=== PATIENT | female | born 1960 | race Caucasian/White ===

== ENCOUNTER 2019-04-22 14:12 | Emergency (ER) | payer SELFPAY ==
[2019-04-22 14:22] VITALS: BP 103/56; PULSE 58; O2SAT 98
[2019-04-22] MEDS ORDERED: Adacel Vial IM ONE (14:30)
--- NOTE | 2019-04-22 14:35 | ERPHSYRPT ---
- History of Present Illness Time Seen by Provider: 04/22/19 14:21 Source: patient Exam Limitations: no limitations Patient Subjective Stated Complaint: pt to ER with dizziness since this morning around 0900. pt states nausea with vomiting. pt states she feels like the room is spinning. Triage Nursing Assessment: pt to ER with complaints of dizziness since 0900. pt with + nausea and vomiting. Physician History: 58 years old right-handed dominant female presented to the ER with chief complaint of right thumb laceration while doing dishes but there was a broken piece of glass. There is bleeding but it stopped with applying pressure. She is able to move her thumb in all directions. She is complaining of dull aching or sharp pain with movements. unsure about tetanus status. Occurred: just prior to arrival Method of Injury: incised Quality: burning, sharpness Severity of Pain-Max: moderate Severity of Pain-Current: mild Extremities Pain Location: thumb: right Modifying Factors: Improves With: immobilization, movement Associated Symptoms: other Allergies/Adverse Reactions: No Known Drug Allergies Allergy (Unverified 04/22/19 14:13) Hx Tetanus, Diphtheria Vaccination/Date Given: Yes Hx Influenza Vaccination/Date Given: No Hx Pneumococcal Vaccination/Date Given: No Immunizations Up to Date: Yes - Past Medical History Pertinent Past Medical History: Yes Neurological History: No Pertinent History ENT History: No Pertinent History Cardiac History: Hypertension Respiratory History: No Pertinent History Endocrine Medical History: No Pertinent History Musculoskeletal History: No Pertinent History GI Medical History: GERD History: No Pertinent History Psycho-Social History: Depression Female Reproductive Disorders: No Pertinent History Other Medical History: HSV type 2 - Past Surgical History Past Surgical History: Yes Neuro Surgical History: No Pertinent History Cardiac: No Pertinent History Respiratory: No Pertinent History Gastrointestinal: Appendectomy Genitourinary: No Pertinent History Musculoskeletal: Orthopedic Surgery Female Surgical History: Tubal Ligation - Social History Smoking Status: Never smoker How long have you smoked: years Exposure to second hand smoke: Yes Drug Use: none Patient Lives Alone: No - Female History Hx Now: No - Nursing Vital Signs Nursing Vital Signs: Initial Vital Signs Pulse Rate 108 H 04/22/19 14:14 Blood Pressure 167/92 04/22/19 14:14 O2 Sat by Pulse Oximetry 98 04/22/19 14:14 Pain Scale Pain Intensity 0 - Physical Exam General Appearance: no apparent distress Eyes, Ears, Nose, Throat Exam: normal ENT inspection Neck Exam: normal inspection, non-tender, supple Cardiovascular/Respiratory Exam: chest non-tender, normal breath sounds, regular rate/rhythm, heart sounds normal Shoulder Exam: normal inspection Elbow/Forearm Exam: normal inspection Wrist Exam: normal inspection Hand Exam: normal ROM, laceration (2.5cm L shaped laceration at dorsal aspect of the MPJ, NO ACTIVE SPURTING BUT OOZING.), No non-tender, No bone tenderness, No nail injury Neuro/Tendon Exam: normal sensation, normal motor functions, normal tendon functions Mental Status Exam: alert, oriented x 3, cooperative Skin Exam: normal color SpO2 Interpretation: normal SpO2: 98 O2 Delivery: Room Air Procedures - Laceration/Wound Repair Right Upper Anterior/Posterior Lateral Proximal Dorsal Finger Wound Location: Right, hand Wound Length (cm): 2.5 Wound's Depth, Shape: superficial Wound Explored: clean Irrigated: Yes Hibiclens Prep: Yes Anesthesia: local, 2% Lidocaine Volume Anesthetic (ccs): 2 Wound Repaired With: sutures Suture Size/Type: 4-0, ethilon Number of Sutures: 5 Layer Closure?: No Sterile Dressing Applied?: Yes Splint Applied?: Yes Type of Splint Applied: aluminum premade Sling Applied?: No - Course Nursing assessment & vital signs reviewed: Yes Ordered Tests: Medication Summary Discontinued Medications Generic Name Dose Route Start Last Admin Trade Name Freq PRN Reason Stop Dose Admin Diphtheria/Tetanus/Acell Pertussis Confirm 04/22/19 14:30 Adacel Vial Administered 04/22/19 14:31 Dose 0.5 ml IM [email or web address] - Progress Progress: improved, re-examined Progress Note: laceration is repaired. pre made aluminum Splint is applied. distal neurovascular intact. 04/22/19 14:39 Counseled pt/family regarding: diagnosis, need for follow-up - Departure Departure Disposition: Home Clinical Impression: Laceration of thumb Qualifiers: Encounter type: initial encounter Damage to nail status: without damage Foreign body presence: without foreign body Laterality: right Qualified Code(s) : S61.011A - Laceration without foreign body of right thumb without damage to nail, initial encounter Condition: Stable Critical Care Time: No Instructions: Wound Care (DC), Laceration Repair With Stitches (DC) Additional Instructions: take Tylenol/ibuprofen as needed. Keep it clean. Avoid exertional activities with the right hand. Followup with primary care for reevaluation and suture removal in 7-10 days. Followup with PCP/ER if as swelling redness discharge/ difficulty moments of thumb
== END 2019-04-22 14:57 | disposition home or self-care (01) ==
LOC: ED 14:12
DX: S61.011A Laceration without foreign body of right thumb without damage to nail, initial encounter (principal); W25.XXXA Contact with sharp glass, initial encounter; Y93.G1 Activity, food preparation and clean up
CPT/HCPCS: 12001; 90471; 90715; 99283